=== PATIENT | male | born 1970 | race Caucasian/White ===

== ENCOUNTER 2021-01-24 11:32 | Emergency (ER) | payer OTHER ==
[~2021-01-24] VITALS: Ht 172.7 cm; Wt 108.0 kg
[2021-01-24 11:43] VITALS: BP 153/59
[2021-01-24] MEDS ORDERED: HYDROcodone/APAP 5/325MG 1 TAB TABLET PO ONE (12:00)
--- NOTE | 2021-01-24 12:01 | PHYS DOC ---
Past History Past Surgical History: No Surgical History Adult General Chief Complaint Chief Complaint: FINGER INJURY HPI HPI Patient is a 50-year-old male presenting for finger accident. Reports he was at work, reports having a heavy 1 inch plate dropped on his right ring finger. Reported immediate focal pain that was nonradiating to distal tip of right ring finger mildly involving nailbed. No changes in motor or sensory or neuro function. Presented to local urgent care and had an x-ray performed that was concerning for an open distal tuft fracture prompting urgent care to refer patient to our ER for evaluation. On evaluation, patient reports a dull ache at site of injury without any radiation or concerning signs or symptoms. Admits he is otherwise healthy with no known medical issues. Tetanus is up-to-date Review of Systems Review of Systems Fourteen body systems of review of systems have been reviewed. See HPI for pertinent positives and negative responses, other alas all other systems are negative, non-pertinent or non-contributory Physical Exam Physical Exam Constitutional: Well developed, well nourished, no acute distress, non-toxic appearance. HENT: Normocephalic, atraumatic, bilateral external ears normal, oropharynx moist, no oral exudates, nose normal. Eyes: PERRLA, EOMI, conjunctiva normal, no discharge. Neck: Normal range of motion, no tenderness, supple, no stridor. Cardiovascular: Heart rate regular per monitor Lungs & Thorax: No respiratory distress or accessory muscle use, bilateral chest rise Abdomen: Abdomen soft, non-tender, bowel sounds present in all quadrants, no guarding or rebound, nonacute abdomen. Skin: Warm, dry, no erythema, no rash. Back: No tenderness, no CVA tenderness. Extremities: Tenderness present to distal tip of right ring finger with minimal nail matrix involvement, there is an area of concern that is open with minute amount of visible bone and subcutaneous tissue present, no cyanosis, no clubbing, ROM intact, no edema. 2+ radial pulses bilaterally to upper extremities Neurologic: Alert and oriented X 3, medial radial and ulnar nerves intact, normal motor & sensory function, no focal deficits noted. Psychologic: Affect normal, judgement normal, mood normal. Current Patient Data Vital Signs Vital Signs Date Time Temp Pulse Resp B/P (MAP) Pulse Ox O2 Delivery O2 Flow Rate FiO2 01/24/21 11:43 98.7 73 18 153/59 97 Room Air EKG EKG [] Radiology/Procedures Radiology/Procedures XR HAND_RIGHT 3 VIEWS History: Dropped a saw plate onto hand this morning. Comparison: None. Technique: 3 views of the right hand. Findings: Osseous mineralization is normal. There is a mildly comminuted tuft fracture ring finger distal phalanx. Mild degenerative changes of the interphalangeal metacarpophalangeal joints. Soft tissue irregularity at the tip of the right ring finger consistent with laceration. Impression: 1. Open, mildly comminuted tuft fracture right ring finger distal phalanx tip. Electronically signed by: Cm Marcus MD (01/24/2021 10:53 AM) [id number] Heart Score C/O Chest Pain: No Risk Factors: Risk Factors: DM, Current or recent (<one month) smoker, HTN, HLP, family history of CAD, obesity. Risk Scores: Risk Factors: DM, Current or recent (<one month) smoker, HTN, HLP, family history of CAD, obesity. Course & Med Decision Making Course & Med Decision Making ABCs unremarkable. I disclosed entirety of ER findings and discussed most likely diagnosis of an open tuft fracture. Hand surgery at [facility] contacted and I spoke with attending physician. They reviewed patient case and recommended patient be splinted, and to be provided antibiotics specifically Augmentin with close outpatient follow-up in their clinic. I disclose conversation with patient and discussed there is no need for emergent transfer for immediate surgical indication. As such, plan of care discussed at length with need for close outpatient follow-up to review today's ER visit stressed. Strict return precautions were also discussed at length with good understanding by patient. Patient voiced understanding and agreement with the plan. Patient knows to come back for repeat evaluation if concerning signs or symptoms present prior to outpatient follow-up. Hemodynamically stable, ambulatory and well-appearing at time of disposition. Dragon Disclaimer Dragon Disclaimer This electronic medical record was generated, in whole or in part, using a voice recognition dictation system. Departure Departure: Impression: Primary Impression: Open fracture of tuft of distal phalanx of finger Disposition: HOME / SELF CARE / HOMELESS Condition: STABLE Referrals: PCP,NO (PCP) Patient Instructions: Finger Fracture Additional Instructions: You were seen for a fracture or broken bone. We spoke with the orthopedic doctors who need to see you in the [facility] orthopedic clinic. They plan to see you this upcoming Sunday. It is imperative that you contact our office at [phone] immediately after ER departure to schedule your outpatient follow-up. You should not use the affected body part until you follow up with orthopedics. Keep the area clean, dry, and avoid getting it wet. You should use ice, NSAIDs, Tylenol, provided pain medication and elevation to help with swelling and pain. Return to the ED if you develop worsening pain, numbness, tingling, weakness, fever, redness, or any other new or concerning symptoms. Scripts Amoxicillin/Potassium Clav (AUGMENTIN 875-125 TABLET) 1 Each Tablet 1 TAB PO BID for Finger Infection for 7 Days, #13 TAB 0 Refills Prov: JULIA HANNAH DO 01/24/21 Hydrocodone Bit/Acetaminophen (HYDROCODONE-APAP 5-325 ) 1 Each Tablet 1 TAB PO PRN Q6HRS PRN for PAIN, #10 TAB 0 Refills Prov: JULIA HANNAH DO 01/24/21 JULIA HANNAH DO Jan 24, 2021 12:01
[2021-01-24] MEDS ORDERED: NEOMY/BACITR/POLYMYXIN OINT PACKET. TP ONE (13:30)
[2021-01-24] MEDS ORDERED: AMOX1TAB61 PO (14:14)
[2021-01-24] MEDS ORDERED: HYDR-2155 PO (14:14)
[2021-01-24] MEDS ORDERED: AMOXICILLIN/K CLAV 875/125MG TABLET. PO ONE (14:15)
== END 2021-01-24 13:28 | disposition home or self-care (01) ==
LOC: EEVIPCON 11:32 → ER 11:32
DX: S62.634B Displaced fracture of distal phalanx of right ring finger, initial encounter for open fracture (principal); W18.09XA Striking against other object with subsequent fall, initial encounter; Y93.89 Activity, other specified; Y92.89 Other specified places as the place of occurrence of the external cause; Y99.8 Other external cause status
CPT/HCPCS: 99283-25

== ENCOUNTER → 2021-01-24 | Outpatient (CLI) | payer OTHER ==
[~2021-01-24] MED LIST: AMOX1TAB61 PO; HYDR-2155 PO
--- NOTE | 2021-01-24 10:56 | RAD ---
XR HAND_RIGHT 3 VIEWS History: Dropped a saw plate onto hand this morning. Comparison: None. Technique: 3 views of the right hand. Findings: Osseous mineralization is normal. There is a mildly comminuted tuft fracture ring finger distal phala nx. Mild degenerative changes of the interphalangeal metacarpophalangeal joints. Soft tissue irregula rity at the tip of the right ring finger consistent with laceration. Impression: 1. Open, mildly comminuted tuft fracture right ring finger distal phalanx tip. Electronically signed by: Cm Marcus MD (01/24/2021 10:53 AM) [id number]
== END ==
LOC: RAD 10:13
PROVIDERS: ATTEND Nurse Practitioner Family
DX: S62.634B Displaced fracture of distal phalanx of right ring finger, initial encounter for open fracture (principal); W22.8XXA Striking against or struck by other objects, initial encounter; Y93.89 Activity, other specified; Y92.89 Other specified places as the place of occurrence of the external cause; Y99.8 Other external cause status
CPT/HCPCS: 73130